=== PATIENT | female | born 1985 | race African-American/Black ===

== ENCOUNTER 2019-02-08 13:32 | Emergency (ER) | payer OTHER, MEDICAID ==
[~2019-02-08] VITALS: Ht 152.4 cm; Wt 75.3 kg
--- NOTE | 2019-02-08 14:10 | NUR ---
PATIENT MEDICALLY CLEARED FOR BOOKING. Patient discharged to home in stable condition. Written and verbal after care instructions given. Patient verbalizes understanding of instruction.
[2019-02-08 14:11] VITALS: BP 118/77
== END 2019-02-08 14:11 ==
LOC: ER 13:35
DX: M79.89 Other specified soft tissue disorders (principal); I10 Essential (primary) hypertension; Z59.0 Homelessness

== ENCOUNTER 2019-10-24 13:20 | Emergency (ER) | payer MEDICAID, OTHER ==
[~2019-10-24] VITALS: Ht 157.5 cm; Wt 56.7 kg
--- NOTE | 2019-10-24 13:38 | NUR ---
PATIENT REFUSING VITALS AND TREATMENT AT THIS TIME, DR. GILLESPIE MADE AWARE. PER PT, RINGS ARE IMPLANTED.
--- NOTE | 2019-10-24 14:30 | NUR ---
ANTONIO MONTENEGRO BS PARDEEP KIM
--- NOTE | 2019-10-24 14:56 | NUR ---
PT CALM, EATING SNACKS, NAD NOTED @ THIS TIME. AWAITING EVAL BY HAND CANDY DIPPER.
--- NOTE | 2019-10-24 15:02 | NUR ---
This SW was contacted by CHEO Ruff to speak with the patient. Patient is a 34-year-old female. Per RN note, [facility], FROM [place], PER EMS, RING IMBEDDED ON FINGERS. Patient is currently on a 5150 hold. This SW attempted to speak with the patient. Patient was given water and juice by automated access systems technician. Patient was eating [employer] sandwich. Patient refused to speak with this SW. Patient had moments where she had blank stares and laughed. This SW spoke with Everton Kothari, to break patients 5150 hold.
--- NOTE | 2019-10-24 15:30 | NUR ---
CALLED [facility]
[2019-10-24] MEDS ORDERED: OLANZAPINE 10 MG VIAL IM ONE ×2 (15:46→16:00)
--- NOTE | 2019-10-24 16:00 | NUR ---
PLACED ON 4 POINT RESTRAINTS PER ERMD ORDER. PLACED ON STEEL PLATE PRINTER. WILL CONT TO MONITOR
[2019-10-24 16:49] LABS: BASOPHILS % (AUTO) 0.3 % (0.0-2.0); EOSINOPHILS % (AUTO) 0.8 % (0.0-6.0); HEMATOCRIT 34 % (33-45); HEMOGLOBIN 10.6 g/dL (11.5-14.8); LYMPHOCYTES # (AUTO) 1.9 /CMM (0.8-4.8); MEAN CORPUSCULAR HGB CONC 31 g/dl (31.0-36.0); MEAN CORPUSCULAR VOLUME 72 fL (82-100); MONOCYTES # (AUTO) 0.8 /CMM (0.1-1.30); MONOCYTES % (AUTO) 10.8 % (2.0-12.0); NEUTROPHILS % (AUTO) 64.1 % (43.0-81.0); PLATELET COUNT (AUTO) 227 /CMM (150-450); RED BLOOD CELL COUNT(AUTO) 4.66 MIL/uL (4.0-5.2); WHITE BLOOD COUNT (AUTO) 7.8 K/uL (4.3-11.0)
[2019-10-24 17:19] LABS: ALANINE AMINOTRANSFERASE 14 U/L (12-78); ALBUMIN 3.7 g/dL (3.4-5.0); ALKALINE PHOSPHATASE 45 U/L (46-116); ASPARTATE AMINOTRANSFERASE 17 U/L (15-37); BILIRUBIN,DIRECT 0.1 mg/dL (0.0-0.2); BILIRUBIN,TOTAL 0.2 mg/dL (0.2-1.0); CALCIUM, SERUM 8.9 mg/dL (8.5-10.1); CARBON DIOXIDE 27 mmol/L (21-32); CHLORIDE 105 mmol/L (98-107); CREATININE 0.7 mg/dL (0.6-1.3); GLUCOSE 102 mg/dL (74-106); SODIUM SERUM 138 mmol/L (136-145); TOTAL PROTEIN, SERUM 6.9 g/dL (6.4-8.2)
[2019-10-24 17:20] LABS: ACETAMINOPHEN < 2 ug/ml (10-30); ALCOHOL, BLOOD < 3 mg/dL (0-0); SALICYLATE 1.2 mg/dL (2.8-20.0)
[2019-10-24 17:24] LABS: APPEARANCE,URINE Clear (CLEAR); BILIRUBIN,URINE Negative (NEGATIVE); BLOOD, URINE Trace-intact Ery/uL (NEGATIVE); COLOR,URINE Yellow (YELLOW); KETONES,URINE Negative (NEGATIVE); LEUKOCYTE ESTERASE ,URINE Negative (NEGATIVE); NITRITE, URINE Negative (NEGATIVE); PROTEIN,URINE Negative (NEGATIVE); UGLUCOSE Negative (NEGATIVE); UROBILINOGEN,URINE 0.2 EU/dL (0.2)
--- NOTE | 2019-10-24 18:06 | NUR ---
PT RESTING, EYES CLOSED, EASILY AWAKEN BY VERBAL STIMULI & WILL GO BACK TO SLEEP. VSS. RR EVEN & UNLABORED. ON TELE, SR. WILL CONT TO MONITOR.
[2019-10-24 18:11] LABS: RBC,URINE 0-2 /HPF (0-2); WBC,URINE 0-2 /HPF (0-3)
[2019-10-24 18:12] LABS: BACTERIA,URINE Rare /HPF (None Seen); SQUAMOUS EPITHELIAL CELL,UR Few /HPF (None Seen)
[2019-10-24 18:17] LABS: UREA NITROGEN, BLOOD 16 mg/dL (7-18)
--- NOTE | 2019-10-24 20:04 | NUR ---
PT CLEARED FOR PSYCH PER GIDEON RUSSELL RN BRICK EXTRUDER OPERATOR.
--- NOTE | 2019-10-24 23:00 | NUR ---
Patient discharged to home in stable condition. Written and verbal after care instructions given. Patient verbalizes understanding of instruction.
[2019-10-25 00:04] VITALS: BP 120/67
== END 2019-10-25 00:05 | disposition home or self-care (01) ==
LOC: ER 13:21
DX: M79.89 Other specified soft tissue disorders (principal); R45.6 Violent behavior; I10 Essential (primary) hypertension; Z59.0 Homelessness
CPT/HCPCS: 36415; 80048; 80076; 80305; 80307; 80329; 81001; 84703; 85025; 96372; 99285; A6403; G0480; J3490; 81000-TC